=== PATIENT | male | born 1980 | race Caucasian/White ===

== ENCOUNTER 2020-11-24 16:13 | Emergency (ER) | payer SELFPAY ==
[~2020-11-24] VITALS: Ht 157.5 cm; Wt 65.9 kg
[~2020-11-24 16:13] MED LIST: ASPI-630 PO; ATOR40TA59 PO; METO25TA4 PO
[2020-11-24 16:21] VITALS: BP 122/74
--- NOTE | 2020-11-24 16:30 | PHYS DOC ---
Past Medical History Past Medical History: High Cholesterol Past Surgical History: Other Additional Past Surgical Histo: CARDIAC CATH Smoking Status: Current Every Day Smoker Alcohol Use: None General Adult EDM: Chief Complaint: CHEST PAIN-CARDIAC NATURE HPI: HPI: 39-year-old male past medical history of hypertension hyperlipidemia recent cardiac cath with no stent deployment presents with a chief complaint of chest pain. Patient states onset of chest pain around 1500 hrs. Patient states at that time he was arguing with his significant other. At that time patient had a 6 out of 10 pain pressure along anterior chest states he had some discomfort in his jaw and felt a little short of breath. 911 was called upon their arrival and treated patient with aspirin and nitroglycerin x2. Patient states after the second nitroglycerin pain completely resolved. At the time of my exam patient is alert oriented x4. He has no complaints. He currently denies any chest pain. Review of Systems: Review of Systems: Review of systems: Constitutional symptoms- No fever, no chills. Eyes- No Discharge, No Visual Loss Respiratory symptoms- Positive shortness of breath, No wheezing, No Dyspnea on Exertion Cardiovascular Systems; Positive chest pain, No Palpitations, No syncope Gastrointestinal symptoms: NO abdominal pain, no nausea, no vomiting or diarrhea. Genitourinary symptoms: No dysuria. Musculoskeletal symptoms: No back pain No extremity pain. NEUROLOGICAL Symptoms: No headache, no generalized weakness; No focal Weakness Heart Score: C/O Chest Pain: Yes HEART Score for Chest Pain: HEART Score for Chest Pain Response (Comments) Value History Slighlty/Non-Suspicious 0 ECG Normal 0 Age < 45 0 Risk Factors 1 or 2 Risk Factors 1 Troponin < Normal Limit 0 Total 1 Risk Factors: Risk Factors: DM, Current or recent (<one month) smoker, HTN, HLP, family history of CAD, obesity. Risk Scores: Score 0 - 3: 2.5% MACE over next 6 weeks - Discharge Home Score 4 - 6: 20.3% MACE over next 6 weeks - Admit for Clinical Observation Score 7 - 10: 72.7% MACE over next 6 weeks - Early Invasive Strategies Allergies: Allergies: Allergies Coded Allergies Type Severity Reaction Last Updated Verified No Known Drug Allergies 11/14/20 No Physical Exam: PE: General: alert, no acute distress. Skin: warm, dry and intact. Head:: Normocephalic, atraumatic. Neck: Trachea midline. Eyes: EOMI, Normal conjunctiva, No drainage CARDIOVASCULAR: Regular rate and rhythm RESPIRATORY: Inspiratory wheeze Back: Full range of motion. MUSCULOSKELETAL: Full range of motion of bilateral upper and lower extremities. GASTROINTESTINAL: Abdomen soft without rebound or guarding. NEUROLOGICAL: Alert and noted to person, place and time. No neurological deficits observed Psychiatric: Cooperative. Normal judgment EKG: EKG: [] EKG performed at 4:15 PM heart rate [address] elevation no ST depression no acute CO Radiology/Procedures: Radiology/Procedures: [] Impression: TECHNIQUE: Portable frontal view of the chest is provided. FINDINGS: The cardiomediastinal silhouette is within normal limits. Lungs are clear. There are no significant pleural effusions. There is no pulmonary vascular congestion. No pneumothorax. No suspicious osseous abnormality. IMPRESSION: There is no acute cardiopulmonary process. Course & Med Decision Making: Course & Med Decision Making Pertinent Labs and Imaging studies reviewed. (See chart for details) [] Patient was evaluated for chief complaint. Work-up consisted of laboratory analysis radiologic imaging and EKG. Results reviewed discussed with patient. Patient's troponin within normal limits chest x-ray no focal infiltrate EKG no acute ischemic changes. Patient's cath report reviewed from 6 days ago November 18, 2020--mild nonobstructive cardiac disease. No stents placed EF 55%. Patient with a low heart score. Expiratory wheeze on exam. Treated with albuterol neb. Wheezing resolved. Patient is currently chest pain-free. He will be discharged home with [facility] uction to follow-up with his primary care physician. Lizbet Disclaimer: Lizbet Disclaimer: This electronic medical record was generated, in whole or in part, using a voice recognition dictation system. Departure Departure Impression: Primary Impression: Chest pain Referrals: NO PCP (PCP) DIONI AGUILERA MD Patient Instructions: Chest Pain (Nonspecific) VADIM MARRERO I DO November 24, 2020 16:30
--- NOTE | 2020-11-24 16:34 | EKG ---
[facility] [address] [place] [id number] Test Date: 2020-11-24 Test Time: 16:15:52 Pat Name: VENKATESH DOYLE Department: Room: Gender: M [employer]: : [id number] Requested By: VADIM MARRERO Order Number: [id number] Reading MD: Measurements Intervals [place] Rate: 92 P: 31 [place]: 134 QRS: 27 QRSD: 82 T: 25 QT: 324 QTc: 405 Interpretive Statements SINUS RHYTHM NORMAL ECG RI6.02 No previous ECG available for comparison
[2020-11-24] MEDS ORDERED: ALBUTEROL SULFATE 2.5 MG/3 ML NEBU. NEB ONE (16:45)
[2020-11-24 16:46] LABS: BASO # 0.1 x10^3/uL (0.0-0.2); BASO % 1 % (0-3); EOS # 0.4 x10^3/uL (0.0-0.7); EOS % 5 % (0-3); HEMATOCRIT 39.9 % (39.0-53.0); HEMOGLOBIN 13.4 g/dL (13.0-17.5); LYMPH # 2.1 x10^3/uL (1.0-4.8); LYMPH % 25 % (24-48); MEAN CORPUSCULAR HEMOGLOBIN 31 pg (25-35); MEAN CORPUSCULAR HGB CONC 34 g/dL (31-37); MEAN CORPUSCULAR VOLUME 91 fL (79-100); MONO # 0.6 x10^3/uL (0.0-1.1); MONO % 7 % (0-9); NEUT # 5.3 x10^3/uL (1.8-7.7); NEUT % 63 % (31-73); PLATELET COUNT 327 x10^3/uL (140-400); RED CELL DISTRIBUTION WIDTH 13.8 % (11.5-14.5); WHITE BLOOD COUNT 8.4 x10^3/uL (4.0-11.0)
[2020-11-24 16:57] LABS: CALCIUM 8.9 mg/dL (8.5-10.1); CREATININE 1.3 mg/dL (0.7-1.3); GFR 61.1; POTASSIUM 4.2 mmol/L (3.5-5.1)
[2020-11-24 17:02] LABS: ALBUMIN 3.4 g/dL (3.4-5.0); TOTAL BILIRUBIN 0.2 mg/dL (0.2-1.0); TOTAL PROTEIN 6.9 g/dL (6.4-8.2)
--- NOTE | 2020-11-24 17:08 | RAD ---
XR CHEST 1V 11/24/2020 5:02 PM INDICATION: Chest pain COMPARISON: None available TECHNIQUE: Portable frontal view of the chest is provided. FINDINGS: The cardiomediastinal silhouette is within normal limits. Lungs are clear. There are no significant pleural effusions. There is no pulmonary vascular congestion. No pneumothora x. No suspicious osseous abnormality. IMPRESSION: There is no acute cardiopulmonary process. Electronically signed by: Azra Wheeler MD (11/24/2020 5:06 PM) [facility]
== END 2020-11-24 17:42 | disposition home or self-care (01) ==
LOC: ER 16:13
DX: R07.89 Other chest pain (principal); R06.02 Shortness of breath; R68.84 Jaw pain; E78.00 Pure hypercholesterolemia, unspecified; I10 Essential (primary) hypertension; E78.5 Hyperlipidemia, unspecified; F17.200 Nicotine dependence, unspecified, uncomplicated
CPT/HCPCS: 36415; 71045; 80053; 84484; 85025; 93005; 94640; 99285; J7613